=== PATIENT | female | born 1995 | race Caucasian/White ===

== ENCOUNTER 2019-03-24 13:02 | Emergency (ER) | payer BC ==
--- NOTE | 2019-03-24 15:14 | EDM.PDOC ---
ED HPI GENERAL MEDICAL PROBLEM - General Chief Complaint: Abdominal Pain Stated Complaint: ABDOMINAL PAIN/VAGINAL BLEEDING Time Seen by Provider: 03/24/19 14:49 Source of Information: Reports: Patient, RN Notes Reviewed History Limitations: Reports: No Limitations - History of Present Illness INITIAL COMMENTS - FREE TEXT/NARRATIVE: Patient is a 23-year-old female who presents to the ED for the evaluation of abdominal pain/vaginal bleeding. The patient notes that she was diagnosed with a UTI when she was seen at the [facility] 2 days ago. 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 The patient states that she is not as she has had a negative test. She is also on control. She states that she is still having right lower abdominal cramping and feels swollen on the right lower abdomen only. She does admit to some nausea but no vomiting. The patient states that she normally gets her period on the schedule days during her pills cycle however she is having some breakthrough bleeding at this time, this is spotting, and not heavy bleeding. She further notes a history of an ovarian cyst at age 18. She did follow up with her provider [facility], and they suggested that she come to [place] to have an ultrasound done the patient denies any sexual intercourse within the last 6 weeks, and she states that sexual intercourse before then was not unprotected. Her primary care provider is Loly Snyder out of the [facility]. Right Lower Abdomen Pain Score (Numeric/FACES): 4 - Related Data Allergies Allergy/AdvReac Type Severity Reaction Status Date / Time No Known Allergies Allergy Verified 03/24/19 13:16 Home Meds: Home Meds Nitrofurantoin Monohyd/M-Cryst [Macrobid 100 mg Capsule] 100 mg PO BID 03/24/19 [History] Norgestimate-Ethinyl Estradiol [Tri-Linyah Tablet] 1 tab PO DAILY 03/24/19 [ History] Past Medical History Genitourinary History: Reports: Renal Calculus, UTI, Recurrent SALES SUPPORT COORDINATOR History: Reports: Other (See Below) Other SALES SUPPORT COORDINATOR History: ovarian cyst that ruptured Social & Family History - Tobacco Use Smoking Status *Q: Never Smoker - Caffeine Use Caffeine Use: Reports: Soda - Recreational Drug Use Recreational Drug Use: No ED ROS GENERAL - Review of Systems Review Of Systems: See Below Constitutional: Denies: Fever, Chills HEENT: Reports: No Symptoms Respiratory: Reports: No Symptoms Cardiovascular: Reports: No Symptoms Endocrine: Reports: No Symptoms GI/Abdominal: Reports: Abdominal Pain (RLQ cramping) : Reports: Discharge (creamy vaginal discharge). Denies: Flank Pain, Frequency, Pain, Urgency Musculoskeletal: Reports: No Symptoms Skin: Reports: No Symptoms Neurological: Reports: No Symptoms ED EXAM, GI/ABD - Physical Exam Exam: See Below Exam Limited By: No Limitations General Appearance: Alert, WD/WN, No Apparent Distress Eyes: Bilateral: Normal Appearance Ears: Normal External Exam Throat/Mouth: Normal Inspection, Normal Lips, Normal Teeth, Normal Gums, Normal Oropharynx, Normal Voice, No Airway Compromise Head: Atraumatic, Normocephalic Neck: Normal Inspection Respiratory/Chest: No Respiratory Distress, Lungs Clear, Normal Breath Sounds, No Accessory Muscle Use, Chest Non-Tender Cardiovascular: Normal Peripheral Pulses, Regular Rate, Rhythm, No Murmur GI/Abdominal Exam: Normal Bowel Sounds, Soft, Non-Tender, Distended (slight distension on RLQ only, as compared to LLQ) (Female) Exam: Deferred Extremities: Normal Inspection, Normal Capillary Refill Neurological: Alert, Oriented, Normal Cognition, No Motor/Sensory Deficits Psychiatric: Normal Affect, Normal Mood Skin Exam: Warm, Dry, Intact, Normal Color, No Rash Course - Vital Signs Last Recorded V/S: Last Vital Signs Temp 98.1 F 03/24/19 13:20 Pulse 57 L 03/24/19 13:20 Resp 20 03/24/19 13:20 BP 125/70 03/24/19 13:20 Pulse Ox 97 03/24/19 13:20 - Orders/Labs/Meds Orders: Active Orders 24 hr Category Date Time Status Abdomen Ltd [US] Stat Exams 03/24/19 14:58 Taken Labs: Laboratory Tests 03/24/19 03/24/19 03/24/19 Range/Units 15:50 15:50 15:50 WBC 7.44 (3.98-10.04) K/mm3 RBC 4.18 (3.98-5.22) M/mm3 Hgb 12.4 (11.2-15.7) gm/L Hct 37.7 (34.1-44.9) % MCV 90.2 (79.4-94.8) fl MCH 29.7 (25.6-32.2) pg MCHC 32.9 (32.2-35.5) g/dl RDW Std Deviation 44.7 (36.4-46.3) fL Plt Count 366 (182-369) K/mm3 MPV 9.9 (9.4-12.3) fl Neutrophils % (Manual) 67 H (40-60) % Band Neutrophils % 0 (0-10) % Lymphocytes % (Manual) 24 (20-40) % Atypical Lymphs % 0 % Monocytes % (Manual) 7 (2-10) % Eosinophils % (Manual) 2 (0.7-5.8) % Basophils % (Manual) 0 L (0.1-1.2) Platelet Estimate Adequate RBC Morph Comment Normal Sodium 141 (136-145) mEq/L Potassium 4.0 (3.5-5.1) mEq/L Chloride 105 (98-107) mEq/L Carbon Dioxide 24 (21-32) mEq/L Anion Gap 16.0 H (5-15) BUN 7 (7-18) mg/dL Creatinine 0.7 (0.55-1.02) mg/dL Est Cr Clr Drug Dosing 127.17 mL/min Estimated GFR (MDRD) > 60 (>60) mL/min BUN/Creatinine Ratio 10.0 L (14-18) Glucose 96 (74-106) mg/dL Calcium 9.0 (8.5-10.1) mg/dL Total Bilirubin 0.2 (0.2-1.0) mg/dL AST 16 (15-37) U/L ALT 43 (14-59) U/L Alkaline Phosphatase 77 (46-116) U/L C-Reactive Protein 1.0 (<1.0) mg/dL Total Protein 7.1 (6.4-8.2) g/dl Albumin 3.5 (3.4-5.0) g/dl Globulin 3.6 gm/dL Albumin/Globulin Ratio 1.0 (1-2) HCG, Qual Negative (NEGATIVE) - Re-Assessments/Exams Free Text/Narrative Re-Assessment/Exam: 03/24/19 15:16 Patient presents to the ED for the evaluation of right lower abdominal pain and vaginal bleeding. I suspect that the cramping is due to her UTI diagnosis at this point in time, she has not started her antibiotics yet. She has not had any abdominal surgeries and still retains her appendix I have ordered an ultrasound to evaluate for any sort of abnormalities, and also ordered a CBC, CMP, and a CRP for further evaluation to rule out any other etiologies for her cramping. 03/24/19 16:31 Patient's CBC, CMP are back and are within normal limits. Her ultrasound is back as well the appendix was not visualized at this time. There was a 2.9 cm simple right ovarian cyst with trace free fluid in the pelvic cul-de-sac. She could be having some cramping due to the untreated UTI at this time. This is the most likely explanation of her pain. 03/24/19 16:41 I did offer to order a CT for further evaluation of the appendix as this was not seen on the ultrasound, however the patient declined this at this time. She will seek re-evaluation if her pain worsens. She was made aware of the urgency if her pain should worsen or change. She verbalized her understanding. Departure - Departure Time of Disposition: 16:42 Disposition: Home, Self-Care 01 Condition: Fair Clinical Impression: Abdominal cramping - Discharge Information *PRESCRIPTION DRUG MONITORING PROGRAM REVIEWED*: No *COPY OF PRESCRIPTION DRUG MONITORING REPORT IN PATIENT SUHAS: No Instructions: Abdominal Pain, Adult, [id number] Referrals: Loly Lainez NP [Primary Care Provider] - Forms: ED Department Discharge, ED Return to Work/School Form Additional Instructions: You have been evaluated in the ED today for your right lower abdominal pain and distention. Your your lab work was within normal limits, her ultrasound did not visualize her appendix, but did show a 2.9 cm simple right ovarian cyst. Your cramping may likely be due to the UTI that has been untreated, please start your antibiotics as soon as possible. If your pain should persist after the start of antibiotics, or your vaginal bleeding worsens, please do not hesitate to return to the ER for reevaluation. Please return to the ER if her symptoms change or worsen. - My Orders Last 24 Hours: My Active Orders 03/24/19 14:58 Abdomen Ltd [US] Stat - Assessment/Plan Last 24 Hours: My Active Orders 03/24/19 14:58 Abdomen Ltd [US] Stat
--- NOTE | 2019-03-26 19:35 | US ---
Limited abdominal ultrasound: Multiple real-time images of the right lower abdomen were obtained. Incidental cyst is noted within the right ovary measuring 2.9 cm. Appendix is not visualized. No inflammatory type change is seen within the fat of the right lower abdomen. Minimal free fluid is seen within the cul-de-sac which I believe is incidental. Impression: 1. Findings which are felt to be incidental as noted above. 2. Appendix not visualized and therefore appendicitis cannot be ruled out although no secondary signs of appendicitis are seen by this exam. Diagnostic code #2 I agree with preliminary report issued by [facility] ([facility] preliminary report dictated on 03/24/19, 5:00 PM Central Time)
== END 2019-03-24 16:58 | disposition home or self-care (01) ==
LOC: JD.ED 13:02
DX: R10.9 Unspecified abdominal pain (principal); Z79.899 Other long term (current) drug therapy
CPT/HCPCS: 36415; 76705; 76705-26; 80053; 84703; 85007; 85027; 86140; 99283; 99284-25